=== PATIENT | male | born 1995 | race Caucasian/White ===

== ENCOUNTER → 2017-01-26 | Outpatient (CLI) | payer OTHER ==
[~2017-01-26] MED LIST: GADOBUTROL 10 ML VIAL IVP ONE; GLUCAGON,HUMAN RECOMBINANT 0.3 MG in SYRINGE 0.3 ML IVP ONE
== END ==
LOC: FIMAGING 06:38
PROVIDERS: ATTEND Internal Medicine Gastroenterology
DX: K52.9 Noninfective gastroenteritis and colitis, unspecified (principal)
CPT/HCPCS: A9585; J1610